=== PATIENT | female | born 1990 | race Caucasian/White ===

== ENCOUNTER 2016-12-09 16:15 | Emergency (ER) | payer OTHER ==
[2016-12-09 16:42] VITALS: RESP 16
--- NOTE | 2016-12-09 17:50 | UCPHY ---
H & P Time Seen by Provider: 12/09/16 16:33 Patient Type: New HPI/ROS: This patient had a dog bite to the right thumb area at the base of the thumb shortly prior to arrival the dog, were she works. However there is no break in the skin because the lacrosse coach he was wearing covered the thumb. She explains a dog brawl going on with multiple dogs involved in in breaking up a dog some of the dogs clamped down on her thumb wtih its jaw. She reports the pain is moderate. It worsens but with movement of the thumb. No other exacerbating or alleviating factors. ROS: No numbness. She denies any other injuries. 5 point ROS is otherwise negative. Smoking Status: Current some day smoker Physical Exam: Physical Exam Vital signs are normal. General: No acute distress HEENT: Atraumatic. Eyes: Pupils equal and react to light. Extraocular motions are intact. Lungs: No respiratory distress. Cardiac: Brisk capillary refill is intact throughout. Skin: No rash or pallor. Extremities: Atraumatic normal except for right thumb Right thumb: Patient has swelling-minimal and tenderness at the metacarpophalangeal joint. There is no laxity to this joint which is mild pain with stress testing. Minimal dorsal contusion. No other hand or wrist findings. Neuro: Alert and oriented with no sensorimotor deficits in the affected thumb. Initial differential diagnosis: Sprain and contusion versus fracture Constitutional: Initial Vital Signs Temperature (C) 36.9 C 12/09/16 16:40 Heart Rate 81 12/09/16 16:40 Respiratory Rate 16 12/09/16 16:40 Blood Pressure 118/64 12/09/16 16:40 O2 Sat (%) 97 12/09/16 16:40 O2 Delivery Mode Room Air Allergies/Adverse Reactions: No Known Allergies Allergy (Unverified 12/09/16 16:42) Home Medications: Medication Instructions Recorded NK [No Known Home Meds] 12/09/16 MDM/Departure - MDM Diagnostics: Thumb x-ray: Negative for fracture by my interpretation ED Course/Re-evaluation: I counseled patient regarding contusion and sprain She is placed in a Velcro thumb spica splint. I think the sprain is minimal with no laxity. She has good prognosis for a rapid recovery. - Depart Disposition: Home, Routine, Self-Care Clinical Impression: Thumb sprain Qualifiers: Encounter type: initial encounter Sprain of finger site: metacarpophalangeal joint Laterality: right Qualified Code(s): S63.641A - Sprain of metacarpophalangeal joint of right thumb, initial encounter Condition: Good Instructions: Skier's Thumb (ED) Additional Instructions: Diagnosis: Thumb sprain and contusion Plan: Wear the thumb brace when you are active until symptoms improve-likely over the next 5-10 days. Gentle stretches each day Ibuprofen and/or Tylenol for discomfort as needed. Work as tolerated with splint in place. Call your work comp clinic to arrange follow-up for recheck in 5-7 days. Stand Alone Forms: Work Comp Follow Up Referrals: NONE *PRIMARY CARE P,. [Primary Care Provider] - As per Instructions - PQRS PQRS Measurement: NA
[2016-12-09 18:01] VITALS: BP 122/87; PULSE 79; TEMP 97.9; O2SAT 96
== END 2016-12-09 18:03 | disposition home or self-care (01) ==
LOC: CED 16:15
DX: S63.641A Sprain of metacarpophalangeal joint of right thumb, initial encounter (principal); S60.011A Contusion of right thumb without damage to nail, initial encounter; W54.0XXA Bitten by dog, initial encounter; Z72.0 Tobacco use
CPT/HCPCS: 73140-PO; G0463-PO; L3807